=== PATIENT | female | born 1995 | race Two or more races ===

== ENCOUNTER 2024-08-27 07:45 | Emergency (ER) | payer OTHER ==
[~2024-08-27] VITALS: Ht 172.7 cm; Wt 101.2 kg
[2024-08-27] MEDS ORDERED: PRENATAL VITAM1 EAC7 (08:34)
[2024-08-27] MEDS ORDERED: 0.9 % SODIUM CHLORIDE 1,000 ML IV ONE (09:00)
[2024-08-27] MEDS ORDERED: FAMOtidine 10 MG/ML (4ML VIAL) IV ONE (09:00)
[2024-08-27 10:11] LABS: BASO % 0.2 % (0.1-1.2); EOS # 0.10 (0.04-0.54); EOS % 0.9 % (0.7-7.0); LYMPH # 1.54 (1.18-3.74); LYMPH % 13.6 % (19.3-53.1); MEAN PLATELET VOLUME 10.40 fl (9.4-12.4); MONO # 0.79 (0.24-0.82); MONO % 7.0 % (4.7-12.5); NEUT # 8.81 (1.56-6.13); NEUT % 77.9 % (34.0-71.1); RED CELL DISTRIBUTION WIDTH 13.2 % (11.6-14.4)
[2024-08-27 11:01] LABS: ALT/SGPT 16.0 U/L (12-78); AST/SGOT 18.0 U/L (15-37); BILIRUBIN TOTAL 0.85 mg/dL (0.3-1.2); BUN CREA RATIO 12.0 (7.0-25.0); CREATININE SERUM 0.43 mg/dL (0.55-1.02); GFR 176.14; GLOBULINA 4.5 G/DL (2.4-3.5); GLUCOSE FASTING 77.0 mg/dL (65-100); OSMOLALITY SERUM 274.0 MOSM/KG (275-295)
[2024-08-27 11:06] LABS: URINE APPEARANCE Clear; URINE BILIRRUBIN Negative (NEGATIVE); URINE BLOOD NHT; URINE COLOR Yellow; URINE GLUCOSE Negative (NEGATIVE); URINE KETONE Trace (NEGATIVE); URINE LEUKOCYTE Small; URINE NITRATE Negative; URINE PROTEIN Negative (NEGATIVE); URINE UROBILINOGEN 0.2 E.U./dl
[2024-08-27 11:11] LABS: URINE BACTERIA 962.2 uL (0.0-1933); URINE CAST 0.14 uL (0.0-1.40); URINE EPITHELIAL CELLS 58.1 uL (0.0-38.8); URINE RBC 31.9 uL (0.0-20.8); URINE WBC 19.5 uL (0.0-23.2)
[2024-08-27 11:36] LABS: COVID-19 AG NEGATIVE (NEGATIVE)
[2024-08-27] MEDS ORDERED: OSEL75CA PO (11:44)
[2024-08-27] MEDS ORDERED: PEPCID AC20 MG PO (11:44)
== END 2024-08-27 11:55 | disposition home or self-care (01) ==
LOC: ER 07:58
PROVIDERS: General Practice
DX: Z34.90 Encounter for supervision of normal pregnancy, unspecified, unspecified trimester (principal); M94.0 Chondrocostal junction syndrome [Tietze]; J10.1 Influenza due to other identified influenza virus with other respiratory manifestations; Z3A.32 32 weeks gestation of pregnancy; Z20.822 Contact with and (suspected) exposure to COVID-19
CPT/HCPCS: 36415; 76816; 76819; 93005; 96365; 96366; 99284; J3490; J7030

== ENCOUNTER 2024-10-11 15:26 | Outpatient (CLI) | payer OTHER ==
[~2024-10-11 15:26] MED LIST: OSEL75CA PO; PEPCID AC20 MG PO; PRENATAL VITAM1 EAC7
== END 2024-10-11 16:57 | disposition home or self-care (01) ==
LOC: NST 15:26
PROVIDERS: ATTEND Obstetrics & Gynecology Gynecology
DX: Z34.83 Encounter for supervision of other normal pregnancy, third trimester (principal)

== ENCOUNTER 2024-10-12 13:00 | Inpatient (IN) | payer OTHER ==
[~2024-10-12] VITALS: Ht 172.7 cm; Wt 103.4 kg
[2024-10-24 06:05] VITALS: BP 117/74
[2024-10-24] MEDS ORDERED: RINGERS SOLUTION,LACTATED 1,000 ML IV SCH (06:30)
[2024-10-24] MEDS ORDERED: AMPICILLIN SODIUM 2,000 MG VIAL IV ONE (06:30)
[2024-10-24 06:48] LABS: BASO % 0.4 % (0.1-1.2); EOS # 0.08 (0.04-0.54); EOS % 1.1 % (0.7-7.0); LYMPH # 2.10 (1.18-3.74); LYMPH % 27.6 % (19.3-53.1); MEAN PLATELET VOLUME 11.10 fl (9.4-12.4); MONO # 0.88 (0.24-0.82); MONO % 11.6 % (4.7-12.5); NEUT # 4.48 (1.56-6.13); NEUT % 58.9 % (34.0-71.1)
[2024-10-24 07:10] VITALS: BP 113/65
[2024-10-24 07:10] LABS: RED CELL DISTRIBUTION WIDTH 16.1 % (11.6-14.4)
[2024-10-24 07:27] LABS: INR 0.94
[2024-10-24 07:38] LABS: ALT/SGPT 11.0 U/L (12-78); AST/SGOT 11.0 U/L (15-37); BILIRUBIN TOTAL 0.7 mg/dL (0.3-1.2); BUN CREA RATIO 10.0 (7.0-25.0); CREATININE SERUM 0.51 mg/dL (0.55-1.02); GFR 144.65; GLOBULINA 3.7 G/DL (2.4-3.5); GLUCOSE FASTING 74.0 mg/dL (65-100); OSMOLALITY SERUM 273.0 MOSM/KG (275-295)
[2024-10-24] MEDS ORDERED: OXYTOCIN 500 ML IV ONE (08:00)
[2024-10-24] MEDS ORDERED: AMPICILLIN SODIUM 1,000 MG VIAL IV SCH (09:00)
[2024-10-24 11:14] VITALS: BP 136/76; O2SAT 99
[2024-10-24] MEDS ORDERED: CHLORHEXIDINE GLUCONATE 120 ML BOTTLE TOP ONE ×3 (11:49→12:30)
[2024-10-24] MEDS ORDERED: ERYTHROMYCIN BASE OPHT 1GM EACH TUBE OP ONE ×2 (11:49→13:00)
[2024-10-24] MEDS ORDERED: OXYTOCIN 20 UNITS/1000ML RL PIGGYBAG IV ONE (11:49)
[2024-10-24] MEDS ORDERED: LIDOCAINE HCL 1% 10ML VIAL ONE (11:50)
[2024-10-24] MEDS ORDERED: OXYTOCIN 1,000 ML IV SCH ×2 (12:15→12:30)
[2024-10-24] MEDS ORDERED: MORPHINE SULFATE 4 MG/ML CARTRIDGE IV SCH (13:00)
[2024-10-24 13:59] VITALS: BP 135/82
[2024-10-24 16:00] VITALS: BP 105/62
[2024-10-24] MEDS ORDERED: DOCUSATE SODIUM 100MG CAP PO SCH (17:00)
[2024-10-25 01:39] VITALS: BP 114/73
[2024-10-25 06:47] LABS: BASO % 0.4 % (0.1-1.2); EOS # 0.09 (0.04-0.54); EOS % 0.8 % (0.7-7.0); LYMPH # 2.17 (1.18-3.74); LYMPH % 19.8 % (19.3-53.1); MEAN PLATELET VOLUME 11.40 fl (9.4-12.4); MONO # 1.18 (0.24-0.82); MONO % 10.7 % (4.7-12.5); NEUT # 7.45 (1.56-6.13); NEUT % 67.8 % (34.0-71.1); RED CELL DISTRIBUTION WIDTH 16.1 % (11.6-14.4)
[2024-10-25 08:23] VITALS: BP 106/74
[2024-10-25] MEDS ORDERED: PNV,CALCIUM 72/IRON/FOLIC ACID 1 TAB TABLET PO SCH (09:00)
[2024-10-25 16:26] VITALS: BP 116/76
[2024-10-25 19:00] VITALS: BP 117/61
[2024-10-26 01:25] VITALS: BP 114/69
[2024-10-26 08:25] VITALS: BP 120/79
== END 2024-10-26 12:17 | disposition home or self-care (01) | DRG 807 ==
LOC: OB/GYN 10-22 13:00 → LDR 10-24 05:46 → OB/GYN 10-24 12:27
PROVIDERS: Obstetrics & Gynecology; ADMIT Obstetrics & Gynecology; ATTEND Obstetrics & Gynecology
PROC: 10E0XZZ Delivery of Products of Conception, External Approach (ICD-10-PCS; principal; 2024-10-24)
PROC: 4A1HXCZ Monitoring of Products of Conception, Cardiac Rate, External Approach (ICD-10-PCS; 2024-10-24)
DX: O80 Encounter for full-term uncomplicated delivery (principal); Z37.0 Single live birth; Z3A.40 40 weeks gestation of pregnancy